=== PATIENT | male | born 1940 | race Caucasian/White ===

== ENCOUNTER → 2023-09-08 | Day surgery (SDC) | payer MEDICARE ==
[~2023-09-08] MED LIST: ACETAMINOPHEN 1000 MG/100 ML IV ONE; ATORVASTATIN CA20 MG PO; DEXAMETHASONE SOD PHOS 10 MG/1 ML VIAL ONE; EPINEPHRINE HCL 1:1000 1ML 1 MG/ML AMP ONE; FENTANYL CITRATE/PF 100MCG/2 ML INJ ONE; FISH OIL 1,0001 EAC7; LIDOCAINE 1% W/EPINEPHRINE 20 ML VIAL ONE; LIDOCAINE HCL 2% LOCAL INJ 5 ML SDV VIAL INJ ONE; MULTI-VITAMIN1 EACH PO; MYRBETRIQ50 MG PO; ONDANSETRON HCL INJ 2MG/ML 2ML 2 MG/ML VIAL ONE; PHENYLEPHRINE HCL 1% 10 MG/ML VIAL ONE; PRESERVISION A1 EAC3; PROPOFOL IV EMULSION 10 MG/ML 20 ML VIAL ONE; RAPAFLO8 MG PO; ROCURONIUM BROMIDE 10 MG/ML 5ML VIAL IV ONE; SEVOFLURANE INHAL SOLN 250 ML PEN BTL ONE; SUGAMMADEX SODIUM 200 MG/2 ML VIAL IV ONE; TRIAMCINOLONE ACET 40 MG/ML VIAL ONE; VITAMIN C1000 MG PO; ZEBETA10 MG PO
[2023-09-08] MEDS: LACTATED RINGER'S 1,000 ML ONE (06:07)
[2023-09-08] MEDS: FENTANYL CITRATE/PF 100MCG/2 ML INJ ONE (09:54)
[2023-09-08 10:46] VITALS: BP 117/68; PULSE 80; RESP 18; O2SAT 95
== END | disposition home or self-care (01) ==
LOC: OR 05:24
PROVIDERS: ATTEND Otolaryngology Otolaryngology/Facial Plastic Surgery
DX: J32.1 Chronic frontal sinusitis (principal); J32.2 Chronic ethmoidal sinusitis; J32.0 Chronic maxillary sinusitis; J34.89 Other specified disorders of nose and nasal sinuses; J34.2 Deviated nasal septum; I10 Essential (primary) hypertension; E78.5 Hyperlipidemia, unspecified; Z79.899 Other long term (current) drug therapy; Z87.891 Personal history of nicotine dependence
CPT/HCPCS: 71046; 87071; 87075; 87186; 87205; 88304; 88305; 88312; 93005; J0171; J1100; J2001; J2371; J2405; J3301